=== PATIENT | male | born 1985 | race Hispanic/Latino ===

== ENCOUNTER 2017-09-22 05:26 | Emergency (ER) | payer SELFPAY ==
[2017-09-22 06:14] LABS: BASOPHILS % (AUTO) 0.3 % (0.0-5.0); EOSINOPHILS % (AUTO) 3.6 % (0.0-8.0); HEMATOCRIT 43.7 % (42-54); LYMPHOCYTES % (AUTO) 34.5 % (21.0-51.0); MEAN CORPUSCULAR HEMOGLOBIN 32.5 pg (27.0-33.0); MEAN CORPUSCULAR HGB CONC 34.8 g/dL (32.0-36.0); MEAN CORPUSCULAR VOLUME 93.4 fL (79-99); MONOCYTES % (AUTO) 9.1 % (3.0-13.0); NEUTROPHILS % (AUTO) 52.5 % (40.0-77.0); PLATELET COUNT (AUTO) 285 K/uL (130-400); RED BLOOD CELL COUNT(AUTO) 4.69 MIL/uL (4.50-6.20); RED CELL DISTRIBUTION WIDTH 13.5 % (11.0-15.5)
[2017-09-22] MEDS ORDERED: MORPHINE SULFATE 4 MG/1ML SYG ONE ×2 (06:14→07:27)
[2017-09-22] MEDS ORDERED: ONDANSETRON ODT 4 MG TAB ONE ×2 (06:15→08:01)
[2017-09-22 06:32] LABS: CREATININE 0.9 mg/dL (0.5-1.5); POTASSIUM 3.8 mmol/L (3.5-5.1)
[2017-09-22 06:34] LABS: ALBUMIN 3.5 g/dL (3.5-5.0); BILIRUBIN,TOTAL 0.3 mg/dL (0.2-1.0); TOTAL PROTEIN, SERUM 7.3 g/dL (6.0-8.3)
[2017-09-22 06:34] LABS: APPEARANCE,URINE CLEAR (CLEAR); BILIRUBIN,URINE NEGATIVE (NEGATIVE); COLOR,URINE YELLOW (YELLOW); GLUCOSE, URINE (UA) NEGATIVE (NEGATIVE); KETONES,URINE NEGATIVE (NEGATIVE); LEUKOCYTE ESTERASE ,URINE NEGATIVE (NEGATIVE); NITRATE,URINE NEGATIVE (NEGATIVE); OCCULT BLOOD,URINE NEGATIVE (NEGATIVE); PROTEIN,URINE NEGATIVE (NEGATIVE); UROBILINOGEN,URINE 0.2 mg/dL (0.2-1.0)
[2017-09-22] MEDS ORDERED: IOPAMIDOL-370 75 ML VIAL IV ONE (06:50)
== END 2017-09-22 08:56 | disposition home or self-care (01) ==
LOC: EDH 05:26
DX: K43.9 Ventral hernia without obstruction or gangrene (principal)
CPT/HCPCS: 36415; 74177; 80053; 81003; 82150; 83690; 85025; 96374; 96376; 99285; J2270 ×2; Q9967

== ENCOUNTER 2017-09-30 12:24 | Observation (INO) | payer OTHER ==
[~2017-09-30] VITALS: Ht 180.3 cm; Wt 117.9 kg
[2017-09-30] MEDS ORDERED: ONDANSETRON HCL MDV 20ML 2 MG/ML VIAL ONE ×2 (12:58→20:55)
[2017-09-30] MEDS ORDERED: HYDROMORPHONE HCL 0.5 MG/0.5 ML ML ONE (12:58)
[2017-09-30 13:12] LABS: BASOPHILS % (AUTO) 0.6 % (0.0-5.0); EOSINOPHILS % (AUTO) 4.3 % (0.0-8.0); HEMATOCRIT 44.2 % (42-54); LYMPHOCYTES % (AUTO) 29.4 % (21.0-51.0); MEAN CORPUSCULAR HEMOGLOBIN 32.3 pg (27.0-33.0); MEAN CORPUSCULAR HGB CONC 34.6 g/dL (32.0-36.0); MEAN CORPUSCULAR VOLUME 93.3 fL (79-99); MONOCYTES % (AUTO) 9.7 % (3.0-13.0); PLATELET COUNT (AUTO) 241 K/uL (130-400); RED BLOOD CELL COUNT(AUTO) 4.74 MIL/uL (4.50-6.20); RED CELL DISTRIBUTION WIDTH 13.7 % (11.0-15.5); WHITE BLOOD COUNT (AUTO) 8.6 K/uL (4.8-10.8)
[2017-09-30 13:13] LABS: APPEARANCE,URINE Clear (CLEAR); BILIRUBIN,URINE Negative (NEGATIVE); COLOR,URINE Yellow (YELLOW); GLUCOSE, URINE (UA) Negative (NEGATIVE); KETONES,URINE Negative (NEGATIVE); LEUKOCYTE ESTERASE ,URINE Negative (NEGATIVE); NITRATE,URINE Negative (NEGATIVE); OCCULT BLOOD,URINE Negative (NEGATIVE); PH,URINE 5.5 (5.0-8.0); PROTEIN,URINE Negative (NEGATIVE)
[2017-09-30 13:24] LABS: CREATININE 0.9 mg/dL (0.5-1.5); POTASSIUM 3.6 mmol/L (3.5-5.1)
[2017-09-30 13:28] LABS: ALBUMIN 3.3 g/dL (3.5-5.0); BILIRUBIN,TOTAL 0.2 mg/dL (0.2-1.0); TOTAL PROTEIN, SERUM 6.9 g/dL (6.0-8.3)
[2017-09-30] MEDS ORDERED: HYDROMORPHONE 1 MG/1 ML AMP ONE (14:02)
[2017-09-30] MEDS ORDERED: KETOROLAC TROMETHAMINE 30MG/ML ONE (14:02)
[2017-09-30] MEDS ORDERED: LACTATED RINGERS 1000ML 1,000 ML IV ONE (18:39)
[2017-09-30] MEDS ORDERED: MORPHINE SULFATE 2 MG/ML 1ML SYG ONE (23:46)
[2017-10-01] VITALS (20 sets, daily range): BP systolic 92–154; BP diastolic 58–103
[2017-10-01] MEDS: LACTATED RINGERS 1000ML 1,000 ML IV SCH ×4 (09:00→23:21)
[2017-10-01] MEDS ORDERED: MORPHINE SULFATE 4 MG/1ML SYG IVP PRN (09:00)
[2017-10-01] MEDS ORDERED: ONDANSETRON HCL MDV 20ML 2 MG/ML VIAL IVP PRN (09:00)
[2017-10-01] MEDS ORDERED: CEFAZOLIN SODIUM 1 GM VIAL ONE ×2 (12:35→19:44)
[2017-10-01] MEDS ORDERED: GLYCOPYRROLATE 0.2 MG/ML 5 ML VIAL ONE (12:56)
[2017-10-01] MEDS ORDERED: LIDOCAINE PF 2% 5ML ABBOJECT ONE (12:56)
[2017-10-01] MEDS ORDERED: DEXAMETHASONE SOD PHOSPHATE 10MG/ML 1ML VIAL ONE (12:56)
[2017-10-01] MEDS ORDERED: NEOSTIGMINE 5MG/5ML SYR IV ONE (12:56)
[2017-10-01] MEDS ORDERED: MIDAZOLAM HCL 1 MG/ML 2ML VIAL ONE (12:57)
[2017-10-01] MEDS ORDERED: SUCCINYLCHOLINE 200MG/10ML SYR ONE (12:57)
[2017-10-01] MEDS ORDERED: PROPOFOL 10 MG/ML 20ML VIAL IV ONE (12:57)
[2017-10-01] MEDS ORDERED: FENTANYL CITRATE PF 50 MCG/1 ML 2ML VIAL ONE (12:59)
[2017-10-01] MEDS ORDERED: BUPIVACAINE/PF 0.25% 30ML VIAL IJ ONE (13:18)
[2017-10-01] MEDS ORDERED: ACETAMINOPHEN-CODEINE 300/30MG TAB PO PRN ×2 (13:45)
[2017-10-01] MEDS ORDERED: MEPERIDINE-PF 25 MG/ML SYG ONE ×2 (13:53→14:35)
[2017-10-01] MEDS: CEFAZOLIN SODIUM 1 GM VIAL IVP SCH (20:50)
[2017-10-01] MEDS ORDERED: CEFAZOLIN 2GM / 50 ML 50 ML IV SCH (21:00)
[2017-10-02 03:18] VITALS: BP 108/55
[2017-10-02] MEDS: CEFAZOLIN SODIUM 1 GM VIAL IVP SCH (04:26)
[2017-10-02 07:49] VITALS: BP 127/94
[2017-10-02] MEDS ORDERED: ACET1TAB12 PO (08:05)
[2017-10-02] MEDS ORDERED: DOCU100C33 PO (09:40)
[2017-10-02 11:23] VITALS: BP 142/68
== END 2017-10-02 11:00 | disposition home or self-care (01) ==
LOC: EDH 12:24 → EDHIP 12:25 → 4BH 10-01 08:30
PROVIDERS: ADMIT Family Medicine; ATTEND Family Medicine
DX: K43.6 Other and unspecified ventral hernia with obstruction, without gangrene (principal)
CPT/HCPCS: 36415; 49653; 74176; 80053; 81003; 82150; 83690; 85025; 88302; 93005; 96374; 96375; 96376; 99285; A4218 ×3; A4450; A4606; A4930; C1781; G0378 ×47; J0330; J0690 ×3; J1100; J1170 ×2; J1885; J2001; J2175 ×2; J2250; J2270; J2704; J2710; J3010; J3490 ×2; J7120 ×4

== ENCOUNTER 2018-06-02 00:41 | Emergency (ER) | payer OTHER ==
[~2018-06-02 00:41] MED LIST: ACET1TAB12 PO; DOCU100C33 PO
[2018-06-02] MEDS ORDERED: ACETAMINOPHEN 325 MG TAB ONE (02:20)
== END 2018-06-02 02:33 | disposition home or self-care (01) ==
LOC: EDH 00:41
DX: F10.129 Alcohol abuse with intoxication, unspecified (principal); M62.838 Other muscle spasm; M25.512 Pain in left shoulder; Y90.9 Presence of alcohol in blood, level not specified
CPT/HCPCS: 71045; 93005

== ENCOUNTER 2019-03-21 02:56 | Emergency (ER) | payer OTHER ==
[2019-03-21] MEDS ORDERED: LIDOCAINE HCL 2% VISCOUS 15 ML UDCUP ONE (03:16)
[2019-03-21] MEDS ORDERED: LIDOCAINE HCL 1% 20 ML VIAL ONE (03:16)
[2019-03-21] MEDS ORDERED: ACETAMINOPHEN EXTRA STRENGTH 500 MG TABLET ONE (03:41)
[2019-03-21] MEDS ORDERED: CLINDAMYCIN HCL 150 MG CAP ONE (03:41)
[2019-03-21] MEDS ORDERED: IBUPROFEN 400 MG TABLET ONE (03:41)
[2019-03-21] MEDS ORDERED: IBUPROFEN 200 MG TAB ONE (03:42)
== END 2019-03-21 03:47 | disposition home or self-care (01) ==
LOC: EDH 02:56
DX: S02.5XXA Fracture of tooth (traumatic), initial encounter for closed fracture (principal); K02.9 Dental caries, unspecified; X58.XXXA Exposure to other specified factors, initial encounter; Y93.89 Activity, other specified; Y92.89 Other specified places as the place of occurrence of the external cause; Y99.8 Other external cause status
CPT/HCPCS: 64400